=== PATIENT | male | born 1945 | race Caucasian/White ===

== ENCOUNTER 2016-09-13 07:29 | Day surgery (SDC) | payer MEDICARE, OTHER ==
--- NOTE | 2016-09-09 16:27 | PCM.ANEPRE ---
Anesthesia Pre-Op Review Anesthesia Recommendations: Proceed with Procedure Additional Comments 70 y/o male with PMH of HTN, DM living in the [facility]. Hasn't taken home meds because he ran out. BP and BG seem fine. (130/74 and ~150 respectively) Will eval DOS. Ok to proceed. Chart Reviewed by: Walt Garcia MD September 09, 2016 16:27
[~2016-09-13] VITALS: Ht 172.7 cm; Wt 87.6 kg
[2016-09-13] VITALS (9 sets, daily range): BP systolic 141–156; BP diastolic 71–97; PULSE 57–70; RESP 15–19; O2SAT 94–99
[~2016-09-13 07:29] MED LIST: Acetaminophen IV 1,000 MG in IV Premix 1 EACH IV ONE; CeFAZolin Inj 2 GM in IV Premix 1 EACH IV ONE; Dexamethasone 4 mg/mL Inj IVPUSH PRN; EPHEDrine Sulfate 50 mg/mL Inj IVPUSH PRN; HYDROmorphone 1 mg/mL Inj IVPUSH PRN; Labetalol 5 mg/mL 4 mL Inj IV PRN; Lactated Ringer's 1,000 ML IV SCH; Lactated Ringer's 500 ML IV PRN; MetoCLOpramide 5 mg/mL 2 mL Inj IVPUSH PRN; OMEP20TA24 PO; Ondansetron 2 mg/mL 2 mL Inj IVPUSH PRN; Phenylephrine 10,000 mCg/mL Inj IVPUSH PRN; fentaNYL-PF 50 mCg/mL 2 mL Inj IVPUSH PRN; hydrALAZINE 20 mg/mL Inj IVPUSH PRN
[2016-09-13] MEDS ORDERED: Ondansetron 2 mg/mL 2 mL Inj ONE (07:30)
[2016-09-13] MEDS ORDERED: EPHEDrine/NS 5 mg/mL 5 mL Syringe ONE (07:30)
[2016-09-13] MEDS ORDERED: Propofol 10,000 mCg/mL 20 mL Inj ONE (07:30)
[2016-09-13] MEDS ORDERED: Ketamine 10 mg/mL 20 mL Inj ONE (07:30)
[2016-09-13] MEDS ORDERED: fentaNYL-PF 50 mCg/mL 2 mL Inj ONE (07:30)
[2016-09-13] MEDS ORDERED: Dexamethasone 4 mg/mL Inj ONE (07:30)
[2016-09-13] MEDS: Lactated Ringer's 1,000 ML IV SCH ×2 (07:40→10:14)
[2016-09-13] MEDS ORDERED: Bupivacaine Liposome 1.3% 20 mL Inj ONE (10:07)
--- NOTE | 2016-09-13 10:07 | PCM.HPANE ---
Patient Data Date of Service: September 13, 2016 Surgeon Admitting Provider: Attending Provider:Junaid Aguirre MD Primary Care Physician:Delia Salomon DO Other Provider:Lia Juarez Anesthesia Reason for Visit Left Inguinal Hernia Ht/WT & BMI Height (Feet): 5 Height (Inches): 8 Weight (Kilograms): 87.6 Body Mass Index 29.00 Allergies Coded Allergies: No Known Allergies (Unverified , 08/21/15) Past Anesthesia History Anesthesia History: Denies:: Abnormal Airway, Anesthesia Reactions, Difficult Intubation, Fam Anesthesia Reaction, Malignant Hyperthermia Diabetes History Hx Diabetes?: Yes Glycemic Control: Oral Medication Current Bedside Blood Glucose: 108 MRSA MRSA: No Medications Hypertension Medication: Yes (currently out of all meds- taking nothing at this time) Home Meds Incl Beta Thad: No Reported Medications Omeprazole Magnesium (Prilosec Otc)20 Mg Tablet.dr20 Mg PO DAILY #1 PKG Ref 0 09/09/16 Discontinued Reported Medications Amlodipine/Atorvastatin 5-20 mg 1 Each Tablet1 Tablet PO DAILY 08/21/15 Omeprazole 20 Mg Capsule.dr20 Mg PO BID 30 Days Ref 0 11/12/14 Atorvastatin (Lipitor)20 Mg [id number] Mg PO DAILY 30 Days Ref 0 11/12/14 Discontinued Scripts Metronidazole (Flagyl)500 Mg [id number] Mg PO QID #40 TABLET Prov:Ming Huerta MD 08/21/15 Ciprofloxacin (Cipro)500 Mg [id number] Mg PO BID #20 TABLET Prov:Ming Huerta MD 08/21/15 History History of ENT Problems?: Yes HEENT History: Positive for:: Cataracts (bilateral ) Hearing Problem Denies:: Abnormal Airway Difficult Intubation Dysphagia Glaucoma Sinus Problem TMJ Denture Type: None Teeth Condition: Within Normal Limits Other HEENT Pertinent History: permanent bridge Hx of Heart Problems?: Yes Cardiovascular History: Positive for:: Hypertension Denies:: AICD Atrial Fibrillation Chest Pain Coronary Artery Disease Edema Heart Murmur 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) Pacemaker Hx of Respiratory Problem?: No Respiratory History: Positive for:: Cough Denies:: Asthma COPD Emphysema Oxygen Administration Pneumonia Tuberculosis Use of C-PAP Machine Use of Inhalers / NEBS Other History/Comment cough productive of clear sputum, no fevers, does not look "sick" Hx Neurologic Problems?: No Neurological History: Denies:: CVA Headaches Multiple Sclerosis Parkinson's Disease Seizures TIA Hx of GI Problems?: Yes Other GI Pertinent History: left inguinal hernia current admission problem Hx of Problems?: Yes Genitourinary History: Denies:: Kidney Stones Urinary Tract Infection Male Hx: Denies:: Prostate Problems Scrotal Mass Testicular Surgery Skin History: Positive for:: History Skin Disorders? (hx of eczema) Denies:: Pressure Ulcers Hx Musculoskeletal Problems?: Yes Musculoskeletal History: Positive for:: Musculoskeletal Trauma (hx foot reconstruction) Osteoarthritis Denies:: Fibromyalgia Joint Replacement Hx of Psycho/Social Problems?: No Psycho Social History: Denies:: Anxiety Hx Depression Hx Surgeries?: Yes Hx Any Other Health Problems?: Yes Other History: Denies:: Cancer Thyroid Disease History Blood Transfusions: Positive for:: Accept Blood Products? Denies:: Blood Transfusions Hx Diabetes: YesBedside Blood Glucose: 108 Hx Alcohol Use: YesAlcoholic Drinks Per Day: beer 2-3 weeklyHx Substance Use: No Smoking Status: Former Smoker Have You Smoked inLast 12 mo: No (not for 20 years ) Stop/Bang S-Snoring: Do You Snore Loudly: Yes T-Tired: feel tired, fatigued: Yes O-Obsered: Observed not breath: No P-Blood Pressure: treated: Yes B- Body Mass Index > 35 kg/m2: No A- Age over 50: Yes N- Neck Large Circumference: No G- Gender Male: Yes SKYLAR Total Score: 5 SKYLAR Risk Assessment: High Risk, =/>3 Yes SKYLAR Category 2: Yes Risk Assessment Category Category 1A: Patient has history of documented sleep apnea, and HAS NOT received any narcotic, sedative or anesthesia administration during this stay. Category 1B: Patient has history of documented sleep apnea, and HAS received any narcotic , sedative or anesthesia administration during this stay Category 2: Patient has SUSPECTED Obstructive Sleep Apnea, and HAS received any narcotic , sedative or anesthesia administration during this stay. Category 3: Patient has SUSPECTED Obstructive Sleep Apnea and HAS NOT received narcotic, sedative or anesthesia administration during this stay. Category 4: Outpatient in Procedural Areas with known sleep apnea or who screen positive for High Risk via the STOP/BANG questionnaire. Exam Exam Vital Signs Vital Signs Date Time Temp Pulse Resp B/P Pulse Ox O2 Delivery O2 Flow Rate FiO2 09/13/16 07:49 36 57 16 156/97 99 Room Air General Appearance: Alert, Oriented X3, Cooperative, No Acute Distress HEENT/AIRWAY: MP 2 Lungs: Clear to Auscultation, Normal Air Movement Heart: Exam Unremarkable, Regular Rate/Rhythm, No Murmurs/Rubs/Gallops Meds/Labs/Diagnostics Admission Meds Current Medications Acetaminophen 1000 mg/Premix 100 ml @ 400 mls/hr PREOP ONCE IV Last administered on 09/13/16 09:35; Start 09/13/16 at 06:00; Stop 09/13/16 at 06:14; Status DC Lactated Ringer's (Lr) 1,000 ml @ 120 mls/hr Q8H20M IV Last administered on 07:40; Start 09/13/16 at 05:00; Stop 09/13/16 at 13:19 Bedside Blood Glucose: 108 Labs Test 09/13/16 08:00 Plan Impression Patient chart reviewed, patient interviewed and anesthestic plan with risks, benefits, and alternatives discussed, and informed consent obtained. NPO per Anesth. Guidelines: Yes ASA Physical Status: ASA2 Mod Systemic Disease Anesthetic Plan: GA Bene/Risks/Altern/Consents: Yes HP Complete Prior to Induction: Yes Walt Hankins MD September 13, 2016 10:07
[2016-09-13] MEDS ORDERED: Bupivacaine Liposome 1.3% 20 mL Inj INFILTRATE ONE (10:21)
--- NOTE | 2016-09-13 23:55 | OP ---
[address] [address] OPERATIVE REPORT PATIENT: LUIS OREILLY : 1945 MR#: [id number] ADMIT: 09/13/2016 JOB ID: [id number] DATE OF SURGERY: 09/13/2016 PREOPERATIVE DIAGNOSIS(ES): Symptomatic left inguinal hernia. POSTOPERATIVE DIAGNOSIS(ES): Symptomatic left inguinal hernia. OPERATION PERFORMED: Left inguinal hernia repair with mesh. SURGEON: Junaid Aguirre MD ANESTHESIA: General, plus 1.33% Exparel. ANESTHESIOLOGIST: Walt Hankins MD FINDINGS: Anatomy was consistent with a direct inguinal hernia. The transversalis fascia was reapproximated to re-establish the integrity of the floor of the inguinal canal. PROCEDURE SUMMARY: The patient was positioned in supine, was administered general anesthesia. The abdomen, genitalia and groin were then prepped in sterile fashion. An oblique incision was made over the left inguinal canal, and blunt and cautery dissection were utilized to separate the structures of the abdominal wall down to the level of the external oblique fascia. The external ring was largely absent, with separation of the external ring to at least the mid point of the inguinal canal. Careful delineation of the anatomy was undertaken and the external oblique was excised further laterally. The cord was then carefully identified, isolated and retracted. The hernia sac was then isolated and developed. The inferior epigastric vein and artery were identified and the hernia sac and defect were medial. Therefore, a direct hernia. The surfaces were carefully delineated and . The hernia sac and contents were dunked back into the abdominal cavity proper. The transversalis fascia was then reapproximated using a running 2-0 PDS. This allowed reduction of the hernia, and a plane was developed deep to the external oblique fascia to accommodate the mesh. A 3 x 6 inch segment of mesh was then selected. It was then carefully trimmed and tailored appropriately, and was affixed to the periosteum of the pubic tubercle, and also intermittently along the inferior margin of the inguinal canal wall and Poupart's ligament with interrupted 2-0 chromic. The mesh was divided laterally and a stellate incision was created to accommodate the cord. Additional Prolene was placed to secure the crossing lateral tails of the mesh and superiorly along the transversalis fascia. The cord was repositioned anatomically and the external oblique was closed with a running 2-0 Monocryl. Mandi's fascia was closed with running 3-0 Vicryl. Finally, the skin was reapproximated with running subcuticular 4-0 Monocryl. The skin surface was cleaned and dried. A thin strip of Telfa was applied along the incision line and Op-Site dressing was applied over the incision, creating a bio-occlusive dressing. The patient was then awakened, transferred to a rbeckemeyer, transferred to recovery in stable condition. CC: [facility]
== END 2016-09-13 23:59 | disposition home or self-care (01) ==
LOC: SAS 07:29
PROVIDERS: ATTEND Specialist
PROC: 0YU60JZ Supplement Left Inguinal Region with Synthetic Substitute, Open Approach (ICD-10-PCS; principal; 2016-09-13 09:15)
DX: K40.90 Unilateral inguinal hernia, without obstruction or gangrene, not specified as recurrent (principal); N40.1 Benign prostatic hyperplasia with lower urinary tract symptoms; I10 Essential (primary) hypertension; E10.9 Type 1 diabetes mellitus without complications; Z87.891 Personal history of nicotine dependence
CPT/HCPCS: 49505; 84153; C1781; J0131; J0690; J1100; J1885; J2250; J2405; J3010; J7120